=== PATIENT | female | born 1960 | race Caucasian/White ===

== ENCOUNTER 2016-12-21 19:54 | Emergency (ER) | payer OTHER ==
[~2016-12-21] VITALS: Ht 162.6 cm; Wt 88.0 kg
[~2016-12-21 19:54] MED LIST: AMBI5TAB PO; CETI10 PO; IBUP-232 PO; LEXA10TA PO; OMEP40CA2 PO; PREG75 PO
[2016-12-21 19:56] VITALS: BP 137/81; PULSE 88; RESP 16; TEMP 98.5; O2SAT 97
--- NOTE | 2016-12-21 20:14 | PD ---
HPI Chief Complaint: Injury Time Seen by Provider: 20:11 Travel History International Travel<30 days: No Contact w/Intl Traveler<30days: No Traveled to known affect area: No History of Present Illness HPI Patient is a 56-year-old female presenting to emergency department for evaluation of right foot pain. Patient states she was walking in the grass when someone scared her and she jumped, she landed on her foot and felt something crack. She reports the pain as a 6 out of 10 when she is trying to ambulate. She denies any numbness, tingling, weakness in her extremity. Denies any swelling or redness. She denies any significant past medical history , her primary care provider is Dr. Landeros. She does report previous fracture to the right foot which is concerning her. PFSH Past Medical History Arthritis: Yes Asthma: Yes Autoimmune Disease: No Blood Disorders: No Anxiety: Yes Depression: No Heart Rhythm Problems: No Cancer: No High Cholesterol: Yes Chemotherapy: No Chest Pain: No Congestive Heart Failure: No COPD: No Cerebrovascular Accident: No Diminished Hearing: No Endocrine: No GERD: Yes Glaucoma: No Genitourinary: No Headaches: Yes Hepatitis: No Hiatal Hernia: Yes Hypertension: No Immune Disorder: No Musculoskeletal: Yes Neurologic: Yes Reproductive: No Migraines: No Myocardial Infarction: No Radiation Therapy: No Seizures: No Sleep Apnea: No Ulcer: No Menopausal: Yes Past Surgical History Abdominal Surgery: No AICD: No Appendectomy: No Arteriovenous Shunt: No Body Medical Devices: SINUS PROBLEMS Cardiac Surgery: No Cholecystectomy: No Ear Surgery: No Endocrine Surgery: No Eye Surgery: No Genitourinary Surgery: No Gynecologic Surgery: Yes (ENDOMETRIAL ABLATION) Insulin Pump: No Joint Replacement: No Oral Surgery: No Pacemaker: No Thoracic Surgery: No Tonsillectomy: Yes Other Surgery: Yes (T&A) Social History Alcohol Use: No Tobacco Use: No Substance Use: No Allergies-Medications (Allergen,Severity, Reaction): Coded Allergies: Cleocin (Verified Allergy, Severe, Anaphylaxis, 12/21/16) Codeine (Verified Allergy, Severe, Anaphylaxis, 12/21/16) Reported Meds & Prescriptions Reported Meds & Active Scripts Active Ibuprofen 600 Mg Tab 600 Mg PO Q6H PRN 10 Days Percocet (Oxycodone-Acetaminophen) 5-325 mg Tab 1 Tab PO Q6H PRN Review of Systems Except as stated in HPI: all other systems reviewed are Neg Musculoskeletal: Positive: Arthralgias, Pain Physical Exam Narrative GENERAL: Well-nourished, well-developed patient. SKIN: Focused skin assessment warm/dry. HEAD: Normocephalic. EYES: No scleral icterus. No injection or drainage. NECK: Supple, trachea midline. No JVD or lymphadenopathy. CARDIOVASCULAR: Regular rate and rhythm without murmurs, gallops, or rubs. RESPIRATORY: Breath sounds equal bilaterally. No accessory muscle use. GASTROINTESTINAL: Abdomen soft, non-tender, nondistended. MUSCULOSKELETAL: No cyanosis, or edema. No obvious deformities noted. No erythema or ecchymosis noted to the right foot. Positive pedal pulse, presents with 3 second capillary refill. Full range of motion in right ankle and toes. BACK: Nontender without obvious deformity. No CVA tenderness. Data Data Last Documented VS Vital Signs Date Time Temp Pulse Resp B/P Pulse Ox O2 Delivery O2 Flow Rate FiO2 12/21/16 19:56 98.5 88 16 137/81 97 Room Air Orders Foot, Limited (2vws) (12/21/16 ) Ice/Cold Pack (12/21/16 20:11) Splinting (12/21/16 ) Crutches (12/21/16 20:41) MDM Medical Decision Making Medical Screen Exam Complete: Yes Emergency Medical Condition: Yes Interpretation(s) Vital Signs Date Time Temp Pulse Resp B/P Pulse Ox O2 Delivery O2 Flow Rate FiO2 12/21/16 19:56 98.5 88 16 137/81 97 Room Air Differential Diagnosis Sprain versus strain versus fracture versus other Narrative Course Patient is a 56-year-old female presenting with right foot pain after landing on it hard. She is neurovascularly intact, there are no obvious deformities noted. X-ray ordered and pending. X-ray shows a right fifth proximal metatarsal fracture. Patient will be placed in a posterior short-leg splint and given crutches. On-call podiatry paged. Discussed with Dr. Phillips who recommended patient follow-up in the office in 2 weeks. Patient given prescription for narcotic pain medication. She was encouraged to rest, elevate extremity. She was encouraged to return to work department immediately for any new or worsening symptoms. She was encouraged to follow up with podiatry as discussed. She verbalized understanding of instructions. Patient is stable for discharge. Diagnosis Primary Impression: Metatarsal fracture Qualified Code: S92.354A - Closed nondisplaced fracture of fifth metatarsal bone of right foot, initial encounter Referrals: Mayela Phillips DPM 1 week Lead Nuclear Medicine Technologist Patient Instructions: Crutch Instructions (ED), Foot Fracture in Adults (ED), General Instructions, Non Weight Bearing Activity (ED) Additional Instructions: Follow-up with podiatry as discussed Rest, elevate extremity Nonweightbearing to right leg Return to emergency department immediately for any new or worsening symptoms Follow-up with your primary doctor Do not drive or operate heavy machinery while taking narcotic pain medication Med/Other Pt SpecificInfo: Prescription(s) given Scripts Ibuprofen 600 Mg [id number] Mg PO Q6H PRN (PAIN) 10 Days Ref 0 Prov:Taylor Perez 12/21/16 Oxycodone-Acetaminophen (Percocet)5-325 mg Tab1 Tab PO Q6H PRN (PAIN) #12 TAB Ref 0 Prov:Cynthia Almonte MD 12/21/16 Disposition: 01 DISCHARGE HOME Condition: Stable Taylor Perez Dec 21, 2016 20:14
[2016-12-21] MEDS ORDERED: PERC5TAB12 PO (20:48)
[2016-12-21] MEDS ORDERED: IBUP-232 PO (20:57)
--- NOTE | 2016-12-21 21:07 | RADRPT ---
EXAM DATE/TIME: 12/21/2016 20:30 [facility] COMPARISON: No previous studies available for comparison. INDICATIONS : Right foot pain and swelling after fall. Pain on lateral foot. MEDICAL HISTORY : None. SURGICAL HISTORY : None. ENCOUNTER: Initial ACUITY: 1 day PAIN SCORE: 10/10 LOCATION: Right foot. FINDINGS: There is a transverse fracture through the lateral cortex of the proximal 5th metatarsal without angu lation or separation. The remainder of the osseous structures of the forefoot are intact. Diffuse o steopenia. Moderate-sized plantar and retrocalcaneal spur. Small dorsal navicular spur. CONCLUSION: Nondisplaced fracture proximal 5th metatarsal, possibly involving only the lateral cortex.. Ghassan Apodaca MD on December 21, 2016 at 21:04 Board Certified Radiologist. This report was verified electronically.
== END 2016-12-21 21:38 | disposition home or self-care (01) ==
LOC: NEPK 19:54
DX: S92.354A Nondisplaced fracture of fifth metatarsal bone, right foot, initial encounter for closed fracture (principal); X58.XXXA Exposure to other specified factors, initial encounter; Y93.01 Activity, walking, marching and hiking; Y92.007 Garden or yard of unspecified non-institutional (private) residence as the place of occurrence of the external cause
CPT/HCPCS: 73620; 99283; E0113